=== PATIENT | male | born 1955 | race Caucasian/White ===

== ENCOUNTER 2018-01-19 17:06 | Emergency (ER) | payer MEDICARE ==
[~2018-01-19] VITALS: Ht 185.4 cm; Wt 74.8 kg
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
[2018-01-19] MEDS ORDERED: LIDOCAINE HCL/PF 1% 30 ML VIAL TP ONE (18:00)
[2018-01-19 18:09] LABS: BASOPHILS % (AUTO) 0.5 % (0.0-2.0); HEMATOCRIT 27 % (39-51); HEMOGLOBIN 9.4 g/dL (13.5-17.5); LYMPHOCYTES # (AUTO) 0.5 /CMM (0.8-4.8); LYMPHOCYTES % (AUTO) 7.7 % (20.0-44.0); MEAN CORPUSCULAR HEMOGLOBIN 33 PG (26.0-33.0); MEAN CORPUSCULAR HGB CONC 34 g/dl (31.0-36.0); MEAN CORPUSCULAR VOLUME 96 fL (80-96); MONOCYTES # (AUTO) 0.6 /CMM (0.1-1.30); MONOCYTES % (AUTO) 7.8 % (2.0-12.0); NEUTROPHILS # (AUTO) 5.9 /CMM (1.8-8.9); PLATELET COUNT (AUTO) 182 /CMM (150-450); RDW COEFFICIENT OF VARIATION 13.2 (11.5-15.0); RED BLOOD CELL COUNT(AUTO) 2.86 MIL/uL (4.5-6.0); WHITE BLOOD COUNT (AUTO) 7.1 K/uL (4.3-11.0)
[2018-01-19 18:20] LABS: CALCIUM, SERUM 8.4 mg/dL (8.5-10.1); CREATININE 1.9 mg/dL (0.6-1.3); POTASSIUM 3.1 mmol/L (3.5-5.1)
[2018-01-19 18:40] LABS: INR 0.94 (0.85-1.15)
[2018-01-19] MEDS ORDERED: POTASSIUM CHLORIDE 20 MEQ TAB.PRT.SR PO ONE ×2 (20:00)
--- NOTE | 2018-01-19 21:00 | NUR ---
IV removed. Catheter intact and site benign. Pressure and 4x4 applied to site. No bleeding noted.
[2018-01-19 21:11] VITALS: BP 128/75
--- NOTE | 2018-01-19 21:13 | NUR ---
Patient discharged to home in stable condition. Written and verbal after care instructions given. Patient verbalizes understanding of instruction.
== END 2018-01-19 21:24 | disposition home or self-care (01) ==
LOC: ER 17:07
DX: S81.811A Laceration without foreign body, right lower leg, initial encounter (principal); K59.00 Constipation, unspecified; I10 Essential (primary) hypertension; Z85.038 Personal history of other malignant neoplasm of large intestine; V49.88XA Car occupant (driver) (passenger) injured in other specified transport accidents, initial encounter; Y93.89 Activity, other specified; Y92.488 Other paved roadways as the place of occurrence of the external cause; Y99.8 Other external cause status
CPT/HCPCS: 12002; 36415; 70450; 71250; 73590; 74176; 80048; 85025; 85730; 99285; A4606; A6403; G0480; J3490; Z7610

== ENCOUNTER 2018-02-13 09:13 | Outpatient (CLI) | payer MEDICARE, OTHER ==
[~2018-02-13 09:13] MED LIST: AMLO10TA6 PO; ARIP5TAB10 PO; BUPR300T54 PO; LACT10SO6 PO; METO-356 PO; SULF1TAB48 PO; THIA100T13 PO
== END 2018-02-13 23:59 | disposition home or self-care (01) ==
LOC: WOU 09:13
PROVIDERS: ATTEND Podiatrist Foot & Ankle Surgery
DX: S81.811D Laceration without foreign body, right lower leg, subsequent encounter (principal); X58.XXXD Exposure to other specified factors, subsequent encounter; F17.200 Nicotine dependence, unspecified, uncomplicated; F10.20 Alcohol dependence, uncomplicated; F15.10 Other stimulant abuse, uncomplicated; Y90.9 Presence of alcohol in blood, level not specified; Z48.817 Encounter for surgical aftercare following surgery on the skin and subcutaneous tissue; R60.0 Localized edema
CPT/HCPCS: 17250; A6402; Z7610

== ENCOUNTER 2018-02-16 09:25 | Outpatient (CLI) | payer MEDICARE, OTHER | END 2018-02-16 23:59 | disposition home health service (06) | LOC: WOU 09:25 | PROVIDERS: ATTEND Podiatrist Foot & Ankle Surgery | DX: Z48.817 Encounter for surgical aftercare following surgery on the skin and subcutaneous tissue (principal); R60.0 Localized edema; I87.2 Venous insufficiency (chronic) (peripheral) | CPT/HCPCS: A6402; G0463; Z7610 ==

== ENCOUNTER 2018-12-30 15:15 | Emergency (ER) | payer MEDICARE, OTHER ==
[~2018-12-30] VITALS: Ht 185.4 cm; Wt 80.7 kg
[~2018-12-30 15:15] MED LIST changes: -AMLO10TA6 PO; +AMLO10TA7 PO
[2018-12-30 15:30] VITALS: BP 127/88
--- NOTE | 2018-12-30 15:44 | NUR ---
Patient eloped from facility. WALKS WITH STEADY GAIT, ID BAND REMOVED, NO IV. ER MD notified.
== END 2018-12-30 15:48 | disposition home or self-care (01) ==
LOC: ER 15:18
DX: F10.129 Alcohol abuse with intoxication, unspecified (principal); I10 Essential (primary) hypertension; Z60.2 Problems related to living alone; Z79.899 Other long term (current) drug therapy; Z85.038 Personal history of other malignant neoplasm of large intestine; Y90.9 Presence of alcohol in blood, level not specified

== ENCOUNTER 2020-02-29 20:56 | Inpatient (IN) | payer MEDICARE, OTHER ==
[~2020-02-29] VITALS: Ht 185.4 cm; Wt 81.6 kg
[~2020-02-29 20:56] MED LIST changes: +BUPR-319 PO; -BUPR300T54 PO; -METO-356 PO; +METO25TA4 PO
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
[2020-02-29] MEDS ORDERED: LORAZEPAM INJ 2 MG/ML VIAL IM ONE ×2 (21:30→22:00)
[2020-02-29] MEDS ORDERED: LORAZEPAM INJ 2 MG/ML VIAL ONE ×2 (21:31→21:47)
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
--- NOTE | 2020-02-29 21:51 | NUR ---
PT MEDICATED ORDERED.
[2020-02-29 22:38] LABS: HEMATOCRIT 23 % (39-51); HEMOGLOBIN 7.9 g/dL (13.5-17.5); MEAN CORPUSCULAR HGB CONC 34 g/dl (31.0-36.0); MEAN CORPUSCULAR VOLUME 91 fL (80-96); PLATELET COUNT (AUTO) 236 /CMM (150-450); RED BLOOD CELL COUNT(AUTO) 2.55 MIL/uL (4.5-6.0); WHITE BLOOD COUNT (AUTO) 4.9 K/uL (4.3-11.0)
[2020-02-29 22:58] LABS: ALBUMIN 2.6 g/dL (3.4-5.0); BILIRUBIN,DIRECT 0.1 mg/dL (0.0-0.2); BILIRUBIN,TOTAL 0.2 mg/dL (0.2-1.0); CALCIUM, SERUM 8.7 mg/dL (8.5-10.1); CREATININE 1.3 mg/dL (0.6-1.3); POTASSIUM 3.4 mmol/L (3.5-5.1); SALICYLATE 3.8 mg/dL (2.8-20.0); TOTAL PROTEIN, SERUM 11.4 g/dL (6.4-8.2)
[2020-02-29 23:22] LABS: NEUTROPHILS % (MANUAL) 60 (42-76)
[2020-02-29 23:23] LABS: BAND % (MANUAL) 3 % (0.0-5.0); EOSINOPHILS % (MANUAL) 6 % (0-4); LYMPHOCYTES % (MANUAL) 22 % (16-48); MONOCYTES % (MANUAL) 9 % (0-11.0)
[2020-03-01] VITALS (83 sets, daily range): BP systolic 44–143; BP diastolic 29–80
[2020-03-01] MEDS ORDERED: LIDOCAINE 2% JEL UROJET 10 ML MM ONE (01:19)
--- NOTE | 2020-03-01 01:30 | NUR ---
URINE COLLECTED AND SENT TO LAB
[2020-03-01 01:54] LABS: APPEARANCE,URINE CLEAR (CLEAR); BILIRUBIN,URINE NEGATIVE (NEGATIVE); BLOOD, URINE TRACE Ery/uL (NEGATIVE); COLOR,URINE YELLOW (YELLOW); KETONES,URINE NEGATIVE (NEGATIVE); LEUKOCYTE ESTERASE ,URINE NEGATIVE (NEGATIVE); NITRITE, URINE NEGATIVE (NEGATIVE); PH,URINE 5.5 (5.0-8.0); PROTEIN,URINE NEGATIVE (NEGATIVE); UGLUCOSE NEGATIVE (NEGATIVE); UROBILINOGEN,URINE 0.2 EU/dL (0.2)
[2020-03-01 01:55] LABS: BACTERIA,URINE None seen /HPF (None Seen); SQUAMOUS EPITHELIAL CELL,UR Few /HPF (None Seen); WBC,URINE 0-2 /HPF (0-3)
--- NOTE | 2020-03-01 03:00 | NUR ---
PT AAOX4, VSS, RESPIRATIONS EVEN AND UNLABORED ON RA W/ NAD NOTED. PT CONNECTED TO THE MONITOR AND POX
--- NOTE | 2020-03-01 04:35 | NUR ---
NOTED O2 SATURATIONS WENT DOWN TO 82%. MADE AWARE.
[2020-03-01] MEDS ORDERED: NALOXONE PREFILLED SYRINGE 2 MG/2 ML SYRINGE ONE (04:41)
[2020-03-01] MEDS ORDERED: PROPOFOL 100 ML ONE (04:50)
--- NOTE | 2020-03-01 05:00 | NUR ---
COVID SWAB SENT TO LAB
--- NOTE | 2020-03-01 05:09 | NUR ---
RT called to er bed 5 for intubation. pt intubated with ett size 7.5 at 26@lip. vent settings: AC 16 450 100% +5. vent plugged in to red outlet. ambu bag at hob. hob at 40 degrees. lung sounds course throughout. abg in [address] will continue to monitor.
--- NOTE | 2020-03-01 05:16 | NUR ---
PT TAKEN TO RADIOLOGY FOR CT
--- NOTE | 2020-03-01 05:21 | NUR ---
PT BACK FROM RADIOLOGY
[2020-03-01] MEDS ORDERED: NOREPINEPHRINE 8 MG in IV NS 0.9% 250 ML IV PRN (05:30)
[2020-03-01] MEDS ORDERED: IV NS 0.9% 1,000 ML IV PRN (05:30)
[2020-03-01] MEDS ORDERED: PROPOFOL 100 ML IV PRN ×2 (05:30)
--- NOTE | 2020-03-01 05:50 | NUR ---
RT AT BEDSIDE FOR ABG
[2020-03-01] MEDS ORDERED: SUCCINYLCHOLINE CHLORIDE 20 MG/ML VIAL IV ONE (06:00)
[2020-03-01] MEDS ORDERED: LORAZEPAM INJ 2 MG/ML VIAL IV PRN ×2 (06:00→09:30)
[2020-03-01] MEDS ORDERED: ETOMIDATE 2 MG/ML VIAL IV ONE (06:00)
[2020-03-01 06:09] LABS: ABG BASE EXCESS -16.4 mmol/L; ABG OXYGEN SATURATION 98.7 % (92.0-98.5); ABG PH 6.944 (7.350-7.450); ABG PO2 226.8 mmHg (75.0-100.0); AaDO2 412.2 mmHg; COHb 1.1 % (0.5-1.5); MetHb 0.5 % (0.0-1.5); O2Hb 97.1 % (94.0-97.0); SITE, ABG Left Radial; VENT MODE, BG AC 16 450 100% +5
[2020-03-01] MEDS ORDERED: ENOXAPARIN SODIUM 40 MG/0.4 ML DISP.SYRIN SQ SCH (07:00)
--- NOTE | 2020-03-01 07:07 | NUR ---
LAB CALLED REGARDING NEGATIVE COVID RESULT.
--- NOTE | 2020-03-01 07:31 | NUR ---
PT TRANSFERRED TO ROOM VIA ACLS PROTOCOL
[2020-03-01] MEDS ORDERED: Thiamine 100 MG in IV D5W 50 ML IV SCH (08:00)
[2020-03-01] MEDS ORDERED: IV LR 1000 ML 1,000 ML IV ONE (08:30)
[2020-03-01] MEDS: PANTOPRAZOLE 40 MG VIAL IV SCH (08:44)
[2020-03-01] MEDS: ASPIRIN 81 MG TAB.CHEW PO SCH ×2 (08:46→09:00)
[2020-03-01] MEDS ORDERED: IV D5/0.45 NACL 1,000 ML IV PRN (09:00)
[2020-03-01 09:18] LABS: ABG BASE EXCESS -13.5 mmol/L; ABG OXYGEN SATURATION 88.4 % (92.0-98.5); ABG PCO2 40.1 mmHg (35.0-45.0); ABG PH 7.167 (7.350-7.450); ABG PO2 62.9 mmHg (75.0-100.0); AaDO2 465.4 mmHg; COHb 0.7 % (0.5-1.5); MetHb 0.3 % (0.0-1.5); O2Hb 87.5 % (94.0-97.0); SITE, ABG Right Radial
[2020-03-01 09:39] LABS: HEMATOCRIT 26 % (39-51); HEMOGLOBIN 8.4 g/dL (13.5-17.5); LYMPHOCYTES # (AUTO) 0.3 /CMM (0.8-4.8); LYMPHOCYTES % (AUTO) 3.7 % (20.0-44.0); MEAN CORPUSCULAR HGB CONC 32 g/dl (31.0-36.0); MEAN CORPUSCULAR VOLUME 94 fL (80-96); MONOCYTES # (AUTO) 0.2 /CMM (0.1-1.30); MONOCYTES % (AUTO) 3.2 % (2.0-12.0); NEUTROPHILS # (AUTO) 6.9 /CMM (1.8-8.9); NEUTROPHILS % (AUTO) 93.1 % (43.0-81.0); PLATELET COUNT (AUTO) 194 /CMM (150-450); RED BLOOD CELL COUNT(AUTO) 2.75 MIL/uL (4.5-6.0); WHITE BLOOD COUNT (AUTO) 7.5 K/uL (4.3-11.0)
[2020-03-01 09:58] LABS: ALBUMIN 2.2 g/dL (3.4-5.0); BILIRUBIN,TOTAL 0.4 mg/dL (0.2-1.0); CALCIUM, SERUM 8.6 mg/dL (8.5-10.1); CREATININE 1.8 mg/dL (0.6-1.3); MAGNESIUM 2.6 mg/dL (1.8-2.4); PHOSPHORUS 7.6 mg/dL (2.5-4.9); POTASSIUM 5.8 mmol/L (3.5-5.1); TOTAL PROTEIN, SERUM 10.9 g/dL (6.4-8.2)
[2020-03-01 10:13] LABS: THYROID STIMULATING HORMONE 1.505 uIU/mL (0.358-3.74)
[2020-03-01] MEDS: PRECEDEX 400 MCG/100 ML BOTTLE 100 ML IV PRN ×3 (10:58→21:23)
[2020-03-01] MEDS ORDERED: ETOMIDATE 2 MG/ML VIAL ONE (12:00)
[2020-03-01] MEDS ORDERED: SUCCINYLCHOLINE CHLORIDE 20 MG/ML VIAL ONE (12:00)
[2020-03-01 13:05] LABS: ABG BASE EXCESS -6.7 mmol/L; ABG OXYGEN SATURATION 94.8 % (92.0-98.5); ABG PCO2 42.5 mmHg (35.0-45.0); ABG PH 7.282 (7.350-7.450); ABG PO2 78.8 mmHg (75.0-100.0); AaDO2 591.7 mmHg; COHb 0.3 % (0.5-1.5); MetHb 0.3 % (0.0-1.5); O2Hb 94.2 % (94.0-97.0); SITE, ABG Right Radial
[2020-03-01] MEDS: BLOOD SUGAR DIAGNOSTIC 1 EACH STRIP IN SCH ×2 (13:27→19:02)
[2020-03-01] MEDS: PIPERACILLIN /TAZOBACTAM 3.375 G in IV D5W 50 ML IV SCH ×2 (13:47→19:02)
[2020-03-01] MEDS ORDERED: SODIUM POLYSTYRENE SULFONATE 15 G/60 ML BOTTLE PO ONE (15:00)
[2020-03-01] MEDS: Sodium Bicarbonate 100 MEQ in IV D5/0.45 NACL 1,000 ML IV PRN (15:15)
[2020-03-01] MEDS: VANCOMYCIN 1.25 GM in IV D5W 250 ML IV SCH (15:15)
[2020-03-01] MEDS: LORAZEPAM INJ 2 MG/ML VIAL IV PRN (16:23)
[2020-03-01] MEDS: LACTULOSE 10 G/15 ML UDC (PYXIS) PO PRN (16:23)
[2020-03-01] MEDS ORDERED: NOREPINEPHRINE 32 MG in IV NS 0.9% 250 ML IV PRN (16:30)
[2020-03-01] MEDS: NOREPINEPHRINE 32 MG in IV NS 0.9% 218 ML IV PRN (17:19)
--- NOTE | 2020-03-01 17:48 | NUR ---
RT PATIENT REMAINS ORALLY INTUBATED ON [facility] VENT WITH ORDERED SETTINGS CHRISTIN WELL. ALARMS CHECKED + AUDIBLE. AMBU BAG AT [facility]. PATIENT SEDATED AND IN NO RESP DISTRESS. Addendum: 03/01/20 at 1749 by CATARINA HOLT RT Amended: Links added.
--- NOTE | 2020-03-01 19:28 | NUR ---
SPUTUM SAMPLE COLLECTED. RN NOTIFIED.
[2020-03-01] MEDS: AZITHROMYCIN 500 MG in IV D5W 250 ML IV SCH (20:42)
[2020-03-02] VITALS (87 sets, daily range): BP systolic 74–150; BP diastolic 49–94
[2020-03-02] MEDS: PIPERACILLIN /TAZOBACTAM 3.375 G in IV D5W 50 ML IV SCH ×2 (00:04→05:41)
[2020-03-02] MEDS: PANTOPRAZOLE 40 MG VIAL IV SCH ×3 (00:04→21:13)
[2020-03-02] MEDS: LACTULOSE 10 G/15 ML UDC (PYXIS) PO PRN (00:04)
[2020-03-02] MEDS: BLOOD SUGAR DIAGNOSTIC 1 EACH STRIP IN SCH ×4 (00:04→18:06)
[2020-03-02] MEDS: LORAZEPAM INJ 2 MG/ML VIAL IV PRN (01:49)
[2020-03-02] MEDS ORDERED: SODIUM BICARBONATE SYR 50 MEQ/50 ML DISP.SYRIN ONE ×2 (02:53→23:39)
[2020-03-02] MEDS: PRECEDEX 400 MCG/100 ML BOTTLE 100 ML IV PRN ×4 (02:56→16:18)
[2020-03-02] MEDS: Sodium Bicarbonate 100 MEQ in IV D5/0.45 NACL 1,000 ML IV PRN ×2 (03:06→12:08)
[2020-03-02] MEDS ORDERED: NOREPINEPHRINE 4 MG/4 ML AMPUL IV ONE (04:22)
[2020-03-02] MEDS: NOREPINEPHRINE 32 MG in IV NS 0.9% 218 ML IV PRN ×2 (04:33→07:52)
[2020-03-02 05:06] LABS: HEMATOCRIT 24 % (39-51); HEMOGLOBIN 7.9 g/dL (13.5-17.5); LYMPHOCYTES # (AUTO) 0.3 /CMM (0.8-4.8); LYMPHOCYTES % (AUTO) 2.3 % (20.0-44.0); MEAN CORPUSCULAR HGB CONC 33 g/dl (31.0-36.0); MEAN CORPUSCULAR VOLUME 91 fL (80-96); MONOCYTES % (AUTO) 7.5 % (2.0-12.0); NEUTROPHILS # (AUTO) 12.4 /CMM (1.8-8.9); NEUTROPHILS % (AUTO) 90.2 % (43.0-81.0); PLATELET COUNT (AUTO) 182 /CMM (150-450); RED BLOOD CELL COUNT(AUTO) 2.65 MIL/uL (4.5-6.0); WHITE BLOOD COUNT (AUTO) 13.7 K/uL (4.3-11.0)
[2020-03-02 05:27] LABS: APPEARANCE,URINE SL CLOUDY (CLEAR); BILIRUBIN,URINE NEGATIVE (NEGATIVE); BLOOD, URINE MODERATE Ery/uL (NEGATIVE); COLOR,URINE YELLOW (YELLOW); KETONES,URINE NEGATIVE (NEGATIVE); LEUKOCYTE ESTERASE ,URINE NEGATIVE (NEGATIVE); NITRITE, URINE POSITIVE (NEGATIVE); PH,URINE 5.5 (5.0-8.0); PROTEIN,URINE 100 mg/dl (NEGATIVE); UGLUCOSE NEGATIVE (NEGATIVE); UROBILINOGEN,URINE 0.2 EU/dL (0.2)
[2020-03-02 05:30] LABS: CREATININE 2.8 mg/dL (0.6-1.3); MAGNESIUM 1.8 mg/dL (1.8-2.4); PHOSPHORUS 3.5 mg/dL (2.5-4.9); POTASSIUM 3.8 mmol/L (3.5-5.1); TOTAL PROTEIN, SERUM 10.1 g/dL (6.4-8.2)
[2020-03-02 06:02] LABS: BACTERIA,URINE Moderate /HPF (None Seen); RBC,URINE 21-50 /HPF (0-2); SQUAMOUS EPITHELIAL CELL,UR Few /HPF (None Seen); WBC,URINE 0-2 /HPF (0-3)
[2020-03-02 06:42] LABS: CREATININE, URINE 73.8 MG/DL (30.0-125.0); URINE TOTAL PROTEIN 167.5 mg/dL (0-11.9)
[2020-03-02] MEDS: VANCOMYCIN 1.25 GM in IV D5W 250 ML IV SCH (06:58)
--- NOTE | 2020-03-02 07:36 | NUR ---
TUNNEL DRIER OPERATOR note [facility] via ETT, FiO2 45%, PEEP 10, SPO2 >94% , RR 21 (AC 20). Patient sedated, gets very agitated at times. ~100mL brown colored drainage from OGT (LIS) yesterday -> ~200mL light pink last night. Secretions via ETT ~50mL thick yellow/watson. SR HR 80-90. No BM. Li in place drained 1200 mL over night. Temp probe in rectum. No fevers over night. Wound pictures taken. Restraints in place. NPO. VERONIKA PICC infusing levo, precedex, IVF. L AC 18G. Sister Marifer info on facesheet. Per Marifer, patient has leukemia
--- NOTE | 2020-03-02 07:45 | NUR ---
ICU/RN: INITIAL NOTES,AM RECEIVED PT INTUBATED AND SEDATED. ETT 7.5, 25CM AT THE LIP. ON VENT SETTINGS ORDERED BY MD, AGITATION AND RESTLESSNESS NOTED. SINUS ON TELE. OGT TO LIS, WILL CONTINUE TO MONITOR. OLIVERA CATH IN PLACE, OUTPUT NOTED. PT NPO AT THIS TIME. RIGHT UPPER ARM PICC LINE PATENT AND INTACT, LEVO INFUSING FOR BP SUPPORT. WILL TITRATE PER PROTOCOL. AFEBRILE AT THIS TIME. ALL NEEDS WILL BE ATTENDED TO, SAFETY MEASURES TAKEN, BED IN LOW POSITION, SIDE RAILS UP, CALL LIGHT WITHIN REACH. WILL CONTINUE CARE. BILATERAL SOFT WRIST RESTRAINTS IN PLACE, ASSESSES PER PROTOCOL.
--- NOTE | 2020-03-02 08:23 | NUR ---
WOUND CARE CONSULT: PT PRESENTS WITH SACRAL SCARRING AND MULTIPLE DRY SCABS, SCARS AND DISCOLORED AREAS TO LOWER LEGS AND FEET, PRESENT ON ADMISSION. RECOMMENDATIONS MADE FOR SKIN PROTECTION. DISCUSSED WITH NURSING STAFF. PT IS ON SHALOM ISOFLEX LOW AIRLOSS BED. WILL SEE PRN. BECK IN AGREEMENT WITH PLAN OF CARE. Addendum: 03/02/20 at 0825 by DEIDRA ELLISON WNDNU Amended: Links added.
[2020-03-02] MEDS ORDERED: Z GUARD REMEDY 2 OZ OINT TP PRN (08:30)
--- NOTE | 2020-03-02 08:30 | NUR ---
ICU/RN: PT SEEN AND ASSESSED BY DIESEL SERVICE TECHNICIAN. NEW ORDERS WILL BE FOLLOWED.
[2020-03-02] MEDS: ASPIRIN 81 MG TAB.CHEW PO SCH (08:49)
[2020-03-02] MEDS: Z GUARD REMEDY 2 OZ OINT TP SCH (08:49)
--- NOTE | 2020-03-02 09:00 | NUR ---
ICU/RN: PER NO SEDATION VACATION FOR PT. PT AGITATED, DIFFICULT TO SEDATED. WILL CONTINUE TO MONITOR.
[2020-03-02 09:41] LABS: ABG BASE EXCESS -1.1 mmol/L; ABG OXYGEN SATURATION 96.3 % (92.0-98.5); ABG PCO2 36.2 mmHg (35.0-45.0); ABG PH 7.423 (7.350-7.450); ABG PO2 79.7 mmHg (75.0-100.0); COHb 0.5 % (0.5-1.5); MetHb 0.1 % (0.0-1.5); O2Hb 95.7 % (94.0-97.0); PEEP,BG 5 cm H2O; SITE, ABG Left Radial; VT, ABG 600 mL
[2020-03-02] MEDS: HYDROCORTISONE SOD SUCCINATE 100 MG/2 ML VIAL IV SCH ×3 (11:28→21:13)
[2020-03-02 11:35] LABS: EOSINOPHIL,URINE None Seen
[2020-03-02] MEDS: PIPERACILLIN /TAZOBACTAM 3.375 G in IV D5W 100 ML IV SCH ×2 (12:01→21:13)
--- NOTE | 2020-03-02 17:32 | NUR ---
RT 0807: RECEIVED PT ORALLY INTUBATED W/ 7.5 ETT MARKED @ 26 CM LIP, WITH NOTED VENT SETTINGS. PAN SHAKER DONE AND TUBE IS SECURE. VENT ALARMS CHECKED AND AUDIBLE. VENT PLUGGED IN RED OUTLET. AMBU BAG NOTED HOB. LINA B/S, SX W/ MOD THK YELLOW SECRETIONS. 0828: REPORT GIVEN TO DR DOTSON WITH CURRENT SETTINGS. PER MD, PLACED PT ON PEEP +5. ORDER WAS PLACED AND CHANGES WERE MADE. 0945: ABG DONE AND RESULTS RELAYED TO RN AND DR DOTSON, PER DR DOTSON LEAVE PT IS, NO CHANGES. 17:32: PT TOLERATING SETTINGS WELL T/O SHIFT. NO SOB OR RESP DISTRESS NOTED, WILL ENDORSE TO NOC SHIFT FOR MOI.
[2020-03-02] MEDS: AZITHROMYCIN 500 MG in IV D5W 250 ML IV SCH (18:11)
--- NOTE | 2020-03-02 18:35 | NUR ---
ICU/RN ENDING NOTES,AM REPORT WILL BE ENDORSED TO NIGHT NURSE FOR MOI. PT INTUBATED AND SEDATED. ON PRECEDEX FOR SEDATION. ON VENT SETTINGS ORDERED, NO DISTRESS NOTED, TOLERATING WELL. SINUS ON TELE. ORDERS FOR WEANING IN AM. PT NPO, OG TUBE TO LIS, MINIMAL OUTPUT. RIGHT UPPER ARM PICC LINE PATENT AND INTACT, NO S/S OF INFECTION OR INFILTRATION NOTED. LEVO OFF, WILL MONITOR BP. ALL NEEDS ATTENDED TO, SAFETY MEASURES TAKEN, BED IN LOW POSITION, SIDE RAILS UP, CALL LIGHT WITHIN REACH. WILL CONTINUE CARE.
[2020-03-02] MEDS ORDERED: NOREPINEPHRINE 8 MG in IV NS 0.9% 242 ML IV PRN (19:00)
--- NOTE | 2020-03-02 19:30 | NUR ---
RN NOTES RECEIVED PT SEDATED ON BED WITH PRECEDEX. PATIENT ON ETT 7.5 AND 26 CM AT LIP LINE WITH VETN SETTING AC 20 TV 600 FIO2 45% PEEP 5 TOELRATED WELL SATURATION 98%. NO ACUTE RESPIRATIRY DISTRESS. AFEBRILE. sr ON TELE MONITOR. OGT ON LIS. WITH MINIMAL OUTPUT. IV SITE ON VERONIKA PICC LINE ARE ALL INTACT AND PATENT. IV RUNNING WITH PRECEDEX 1.2 AND BICARB @ 100 CC/HR. TURN AND REPOSITION FOR SKIN MANAGEMENT. KEPT PT CLEAN AND DRY. CALL LIGHT PLACED WITHIN EASY REACH,, WILL CONTINUE TO MONITOR.
[2020-03-02] MEDS ORDERED: IV NS 0.9% 250 ML IV PRN (21:30)
[2020-03-03] VITALS (39 sets, daily range): BP systolic 84–155; BP diastolic 79–106
[2020-03-03] MEDS: BLOOD SUGAR DIAGNOSTIC 1 EACH STRIP IN SCH ×4 (00:07→18:18)
[2020-03-03] MEDS: PRECEDEX 400 MCG/100 ML BOTTLE 100 ML IV PRN ×2 (00:40→05:19)
[2020-03-03 03:09] LABS: *BASOS 0 % (Not Estab.); *EOS 0 % (Not Estab.); *HCT 23.6 % (37.5-51.0); *HGB 7.6 g/dL (13.0-17.7); *IMMATURE GRANULOCYTES 0 % (Not Estab.); *LYMPHOCYTES 5 % (Not Estab.); *LYMPHS, ABSOLUTE 0.2 x10E3/uL (0.7-3.1); *MCH 29.5 pg (26.6-33.0); *MCHC 32.2 g/dL (31.5-35.7); *MCV 92 fL (79-97); *MONOCYTES 11 % (Not Estab.); *MONOS, ABSOLUTE 0.4 x10E3/uL (0.1-0.9); *NEUTROPHILS 84 % (Not Estab.); *NEUTROPHILS, ABSOLUTE 2.9 x10E3/uL (1.4-7.0); *PLT 145 x10E3/uL (150-450); *RBC 2.58 x10E6/uL (4.14-5.80)
[2020-03-03 04:56] LABS: HEMATOCRIT 23 % (39-51); HEMOGLOBIN 7.8 g/dL (13.5-17.5); LYMPHOCYTES # (AUTO) 0.2 /CMM (0.8-4.8); LYMPHOCYTES % (AUTO) 0.9 % (20.0-44.0); MEAN CORPUSCULAR HGB CONC 34 g/dl (31.0-36.0); MEAN CORPUSCULAR VOLUME 89 fL (80-96); MONOCYTES # (AUTO) 0.9 /CMM (0.1-1.30); MONOCYTES % (AUTO) 3.7 % (2.0-12.0); NEUTROPHILS # (AUTO) 22.1 /CMM (1.8-8.9); NEUTROPHILS % (AUTO) 95.4 % (43.0-81.0); PLATELET COUNT (AUTO) 153 /CMM (150-450); RED BLOOD CELL COUNT(AUTO) 2.61 MIL/uL (4.5-6.0); WHITE BLOOD COUNT (AUTO) 23.1 K/uL (4.3-11.0)
[2020-03-03 05:18] LABS: ALBUMIN 1.9 g/dL (3.4-5.0); BILIRUBIN,DIRECT 0.3 mg/dL (0.0-0.2); BILIRUBIN,TOTAL 1.6 mg/dL (0.2-1.0); CALCIUM, SERUM 8.3 mg/dL (8.5-10.1); CREATININE 1.9 mg/dL (0.6-1.3)
[2020-03-03] MEDS: PIPERACILLIN /TAZOBACTAM 3.375 G in IV D5W 100 ML IV SCH ×3 (05:20→20:45)
[2020-03-03] MEDS: HYDROCORTISONE SOD SUCCINATE 100 MG/2 ML VIAL IV SCH ×3 (05:20→20:45)
--- NOTE | 2020-03-03 07:00 | NUR ---
RN NOTES PATIENT REMAINED INTUBATED WITH SAME VENT SETTING ON FIO2 45%. WITH LOW GRADE FEVER. COOLING MEASURES PROVIDED. INCONTINENT CARE RENDERED. IV SITE VERONIKA PICC LINE WITH PRECEDEX RUNNING TOLERATED WELL. PATIENT REMAINED SEDATED. OLIVERA CATH KEPT IN PLACED WITH GOOD URINE OUTPUT. KEPT PT CLEAN AND DRY. PT WILL HAVE WEANING TRIAL TODAY. WILL ENDORSED CONTINUITY OF CARE.
--- NOTE | 2020-03-03 07:30 | NUR ---
RN OPENING NOTE: RECEIVED PATIENT IN BED THIS MORNING. PATIENT IS INTUBATED AND TOLERATING SETTINGS WELL. NO SIGNS OF ACUTE DISTRESS NOTED AT THIS TIME. SR IN THE 70S NOTED ON THE MONITOR. OGT LIS. OLIVERA DRAINING URINE. WOUND CARE PER ORDERS. VERONIKA PICC/ #18 LAC C/D/I, FLUSHING WELL, NO SIGNS OF COMPLICATIONS NOTED. SAFETY MEASURES IMPLEMENTED, BED IN LOWEST POSITION, LOCKED, SIDE RAILS UP, CALL LIGHT WITHIN REACH. WILL CONTINUE TO MONITOR PATIENT FOR CHANGES.
--- NOTE | 2020-03-03 08:06 | NUR ---
PER MD NOTES, TRANSFUSE FOR HBG <8, CLARIFIED WITH MD D/T PATIENT'S CURRENT HGB LEVELS. MD WILL GET BACK TO ME. RECEIVED OVER THE PHONE CONSENT FOR TRANSFUSION FROM PATIENT'S SISTER.
[2020-03-03] MEDS: ASPIRIN 81 MG TAB.CHEW PO SCH ×2 (08:13→08:18)
[2020-03-03] MEDS: PANTOPRAZOLE 40 MG VIAL IV SCH ×2 (08:13→20:45)
[2020-03-03] MEDS: Z GUARD REMEDY 2 OZ OINT TP SCH (08:14)
--- NOTE | 2020-03-03 08:18 | NUR ---
PATIENT HAS TEMP OF 100.5, D/T PATIENT HAVING LIVER ISSUES, DO NOT GIVE ANYTHING FOR TEMP PER DR DOTSON
[2020-03-03 12:00] LABS: ABG BASE EXCESS 4.2 mmol/L; ABG OXYGEN SATURATION 96.3 % (92.0-98.5); ABG PCO2 37.4 mmHg (35.0-45.0); ABG PH 7.488 (7.350-7.450); ABG PO2 83.8 mmHg (75.0-100.0); AaDO2 194.5 mmHg; COHb 0.3 % (0.5-1.5); SITE, ABG Right Radial
[2020-03-03] MEDS: POTASSIUM CL. PREMIX PERIPHER. 50 ML IV SCH ×5 (12:47→18:19)
[2020-03-03 13:11] LABS: *% CD 4 POS. LYMPH 34.4 % (30.8-58.5); *ABSOLUTE CD 4 HELPER 69 /uL (359-1519); *ABSOLUTE CD 8 SUPPRESSOR 52 /uL (109-897); *CD4/CD8 RATIO 1.32 (0.92-3.72)
--- NOTE | 2020-03-03 13:30 | NUR ---
RT PATIENT WAS EXTUBATED AND PLACED ON SUPPLEMENTAL O2 PER DR ARGUETA ORDER. PATIENT IN NO DISTRESS NO SOB. ALONZO BLAKELY AT BEDSIDE.
[2020-03-03] MEDS ORDERED: VANCOMYCIN 1 GM in IV D5W 250 ML IV SCH (14:00)
[2020-03-03] MEDS: AZITHROMYCIN 500 MG in IV D5W 250 ML IV SCH (18:11)
--- NOTE | 2020-03-03 18:48 | NUR ---
NO INSULIN COVERAGE TODAY D/T PATIENT BEING NPO
--- NOTE | 2020-03-03 18:48 | NUR ---
RN CLOSING NOTE: PATIENT REMAINS IN BED. NO SIGNS OF ACUTE DISTRESS NOTED AT THIS TIME. SR IN THE 60S ON BEDSIDE MONITOR. SAFETY MEASURES IMPLEMENTED, BED IN LOWEST POSITION, LOCKED, SIDE RAILS UP, CALL LIGHT WITHIN REACH. WILL ENDORSE TO ONCOMING SHIFT RN FOR CONTINUITY OF CARE.
--- NOTE | 2020-03-03 20:30 | NUR ---
RN NOTES NOTED PATIENT PICC LINE WAS REMOVED. SLIGHT BLEEDING NOTED, TIP ARE INTACT. NO SOB. PATIENT IS SLIGHT RESTLESS. REEDUCATE AND INFORM PATIENT, RE ORIENTED WHERE HE IS. PATIENT STARTED TO GET SLIGHT AGITATION AND WANTED TO GO HOME. INSTRUCTED PATIENT HIS CONDITION AND THE TIME AT THIS TIME. PATIENT SLOWLY CALMING DOWN. AND ASKED FOR DRINKS. INFORMED STREET LIGHT REPAIRER SPOKE TO MARGAUX BUTTS WITH NEW ORDER OK TO GIVE DRINKS AFTER INITIALLY ASSESS BY NURSE AND FOLLOW UP WITH MATTY BRAVO TOMORROW.
[2020-03-03] MEDS: CLINDAMYCIN 600 MG in IV D5W 50 ML IV SCH (20:45)
[2020-03-03] MEDS ORDERED: CLINDAMYCIN 900 MG in IV D5W 50 ML IV SCH (21:00)
--- NOTE | 2020-03-03 22:00 | NUR ---
RN NOTES IV LINE ON CARLOS AND LAC G 20 INSERTED WITH GOOD BLOOD RETURN AND FLUSHED WELL. SECURED. LFA REMOVED CLOGGED. PT IS RESTLESS AND TRYING TO GET UP ON BED. PATIENT PLACE BACK TO RESTRAINT , CIRCULATION CHECKED. INFORMED AND REEDUCATE THE PATIENT .
[2020-03-04] VITALS (18 sets, daily range): BP systolic 116–154; BP diastolic 65–90
[2020-03-04] MEDS: BLOOD SUGAR DIAGNOSTIC 1 EACH STRIP IN SCH ×4 (00:26→17:08)
[2020-03-04 04:45] LABS: BASOPHILS # (AUTO) 0.2 /CMM (0.0-0.2); BASOPHILS % (AUTO) 0.6 % (0.0-2.0); HEMATOCRIT 26 % (39-51); HEMOGLOBIN 8.6 g/dL (13.5-17.5); LYMPHOCYTES # (AUTO) 0.3 /CMM (0.8-4.8); LYMPHOCYTES % (AUTO) 1.2 % (20.0-44.0); MEAN CORPUSCULAR HGB CONC 34 g/dl (31.0-36.0); MEAN CORPUSCULAR VOLUME 90 fL (80-96); MONOCYTES # (AUTO) 0.9 /CMM (0.1-1.30); MONOCYTES % (AUTO) 3.1 % (2.0-12.0); NEUTROPHILS % (AUTO) 95.1 % (43.0-81.0); PLATELET COUNT (AUTO) 141 /CMM (150-450); RED BLOOD CELL COUNT(AUTO) 2.86 MIL/uL (4.5-6.0); WHITE BLOOD COUNT (AUTO) 27.3 K/uL (4.3-11.0)
[2020-03-04 05:08] LABS: CALCIUM, SERUM 8.9 mg/dL (8.5-10.1); CREATININE 1.5 mg/dL (0.6-1.3); MAGNESIUM 2.1 mg/dL (1.8-2.4); PHOSPHORUS 2.6 mg/dL (2.5-4.9)
[2020-03-04 05:24] LABS: POTASSIUM 2.5 mmol/L (3.5-5.1)
[2020-03-04] MEDS: HYDROCORTISONE SOD SUCCINATE 100 MG/2 ML VIAL IV SCH ×3 (05:26→21:19)
[2020-03-04] MEDS: CLINDAMYCIN 600 MG in IV D5W 50 ML IV SCH ×3 (05:27→21:19)
[2020-03-04] MEDS: PIPERACILLIN /TAZOBACTAM 3.375 G in IV D5W 100 ML IV SCH ×2 (05:27→13:10)
[2020-03-04 06:09] LABS: *SPE A/G RATIO 0.5 (0.7-1.7); *SPE ALBUMIN 3.1 g/dL (2.9-4.4); *SPE ALPHA-1-GLOBULIN 0.2 g/dL (0.0-0.4); *SPE ALPHA-2-GLOBULIN 0.5 g/dL (0.4-1.0); *SPE BETA GLOBULIN 0.7 g/dL (0.7-1.3); *SPE GLOBULIN, TOTAL 6.4 g/dL (2.2-3.9); *SPE M-SPIKE 4.7 g/dL (Not Observed); *SPEGAMMA GLOBULIN 4.9 g/dL (0.4-1.8)
[2020-03-04] MEDS ORDERED: [UNRECOGNIZED DRUG - MIXTURE] IV ONE (06:30)
--- NOTE | 2020-03-04 07:10 | NUR ---
RN NOTES PATIENT ASLEEP WELL ON BED. BREATHING EVEN AND UNLABORED. ON O2 3LPM VIA NC SATURATION 100%. AFEBRILE. VSS PATIENT TOLERATED FLUIDS DURING NURSING ASSESSMENT. DENIES PAIN PATIENT REFUSED TO HAVE BLOOD DRAWN FOR VANCO TROUGH. EXPLAINED THE BENEFITS OF LAB. INEFFECTIVE. ALL NEEDS ATTENDED. CRITICAL LAB VALUES REPORTED TO NOTED AND ACKNOWLEDGE ORDER. KEPT PT CLEAN AND DRY. ENDORSED CONTINUITY OF CARE TO AM NURSE.
[2020-03-04] MEDS: POTASSIUM CL. PREMIX PERIPHER. 50 ML IV SCH ×5 (07:30→21:38)
--- NOTE | 2020-03-04 07:30 | NUR ---
RN OPENING NOTE: RECEIVED PATIENT IN BED THIS MORNING. PATIENT IS AAOX3, RESPONDS APPROPRIATELY. NO SIGNS OF ACUTE DISTRESS NOTED. SATING WELL ON 3L/MIN NC. SINUS CELY IN 50S ON BEDSIDE MONITOR. 320 LAC/CARLOS, C/D/I, FLUSHING WELL, NO SIGNS OF COMPLICATIONS NOTED. OLIVERA DRAINING URINE. WOUND CARE PER ORDERS. SAFETY MEASURES IMPLEMENTED, BED IN LOWEST POSITION, LOCKED, SIDE RAILS UP, CALL LIGHT WITHIN REACH. WILL CONTINUE TO MONITOR PATIENT FOR CHANGES.
[2020-03-04] MEDS: ASPIRIN 81 MG TAB.CHEW PO SCH (08:10)
[2020-03-04] MEDS: PANTOPRAZOLE 40 MG VIAL IV SCH ×2 (08:12→21:19)
[2020-03-04] MEDS: Z GUARD REMEDY 2 OZ OINT TP SCH (08:13)
[2020-03-04] MEDS ORDERED: PRIMAQUINE 15 MG TABLET PO SCH (09:00)
[2020-03-04] MEDS: Potassium Chloride 20 MEQ in IV NS 0.9% 1,000 ML IV PRN (09:14)
[2020-03-04] MEDS: PRIMAQUINE 15 MG TABLET PO SCH (11:22)
[2020-03-04] MEDS ORDERED: DEXTROSE 50%-WATER 50 ML DISP.SYRIN IV PRN (12:30)
[2020-03-04] MEDS ORDERED: INSULIN REGULAR, HUMAN 100 UNIT/ML 3 ML VIAL SQ PRN (12:30)
--- NOTE | 2020-03-04 12:44 | NUR ---
CONTACTED DR CHAVEZ TO REQUEST SLIDING SCALE D/T PATIENT BEING ON A DIET POST ST EVAL. ORDERS TO PUT PATIENT ON MODERATE SLIDING SCALE.
--- NOTE | 2020-03-04 14:26 | NUR ---
PATIENT IN PAIN, CONTACTED DR CHAVEZ WITH ORDERS FOR MORPHINE CARRIED OUT
[2020-03-04] MEDS: MORPHINE SULFATE INJ 4 MG/ML DISP.SYRIN IV PRN ×3 (14:33→22:19)
--- NOTE | 2020-03-04 15:57 | NUR ---
PATIENT LEFT ICU AT 1557. NO ACUTE DISTRESS NOTED AT THIS TIME. VSS. GAVE REPORT TO ALONZO NORWOOD. BELONGINGS, CHART AND MEDICATIONS TRANSFERRED WITH PATIENT. SAFETY MEASURES IMPLEMENTED, BED IN LOWEST POSITION, LOCKED, SIDE RAILS UP, CALL LIGHT WITHIN REACH.
--- NOTE | 2020-03-04 16:00 | NUR ---
HORSEBACK EXCAVATOR NOTE: Patient transferred from ICU to room 109. In stable condition with cont. o2 via NC @ 3lpm, no SOB and not in respiratory distress. Saturation @ 93%. Pain reported and will be managed with prescribed pain medication.IV site clean, dry, patent and intact. Infusions being tolerated well. Li catheter in place and draining max colored urine. Bilateral soft wrist restraints on. Call light in reach Bed locked, low and at semi-soto's position. Side rails up x3. Will continue to monitor.
[2020-03-04] MEDS: BLOOD SUGAR DIAGNOSTIC 1 EACH STRIP VI SCH ×2 (17:08→21:54)
[2020-03-04] MEDS: CEFTRIAXONE 1 G in IV D5W 50 ML IV SCH (18:13)
[2020-03-04] MEDS: AZITHROMYCIN 500 MG in IV D5W 250 ML IV SCH (19:27)
--- NOTE | 2020-03-04 19:53 | NUR ---
Patient lying in bed w hob elevated. In stable condition with cont. o2 via NC @ 3lpm, no SOB and not in respiratory distress. Saturation @ 93%. Pain reported and will be managed with prescribed pain medication.IV site clean, dry, patent and intact. IV KCL running as prescribed. IV Antibiotics running as prescribed. Infusions being tolerated well. Li catheter in place and draining max colored urine. Bilateral soft wrist restraints on. Call light in reach Bed locked, low and at semi-soto's position. Side rails up x3. Willl endorse to oncoming RN.
[2020-03-04] MEDS: *INSULIN REGULAR(HUMULIN R)HUM 100 UNIT/ML VIAL SQ PRN (21:55)
--- NOTE | 2020-03-04 22:30 | NUR ---
2229 PATIENT KEEPS COMPLAINING OF PAIN ON HIS IV SITE WHERE KCL IV IS RUNNING. IV SITE PATENT WITH NO SIGNS OF INFILTRATION NOTED. PATIENT INSISTS ON STOPPING MEDICATION DESPITE EXPLANATION THE NEED FOR IT. POST DOC FELLOWSHIP KEH IN THE UNIT AND MADE AWARE OF PATIENT'S COMPLAIN WITH ORDER TO CANCEL REMAINING 20MEQ IV AND GIVE KCL 40 MEQ PO INSTEAD . ORDER NOTED AND CARRIED OUT. PATIENT MADE AWARE OF NEW ORDER.
[2020-03-04] MEDS ORDERED: POTASSIUM CHLORIDE 20 MEQ TAB.PRT.SR PO ONE (23:00)
[2020-03-05] VITALS (7 sets, daily range): BP systolic 132–174; BP diastolic 63–98
[2020-03-05] MEDS ORDERED: IV PREMIX NS +20MEQ KCL 1 L IV ONE (01:51)
[2020-03-05] MEDS: Potassium Chloride 20 MEQ in IV NS 0.9% 1,000 ML IV PRN ×3 (01:57→17:14)
[2020-03-05] MEDS: MORPHINE SULFATE INJ 4 MG/ML DISP.SYRIN IV PRN ×5 (02:08→20:13)
[2020-03-05] MEDS: HYDROCORTISONE SOD SUCCINATE 100 MG/2 ML VIAL IV SCH ×3 (04:07→20:38)
[2020-03-05] MEDS: CLINDAMYCIN 600 MG in IV D5W 50 ML IV SCH ×3 (04:07→20:38)
--- NOTE | 2020-03-05 06:51 | NUR ---
RN CLOSING NOTES PT ON BED A/OX3 ABLE TO VERBALIZED NEEDS, ON O2 2L WITH SPO2 98% TELE MONITOR READS SINUS RHYTHM 80,S NO SIGNIFICANT CHANGES ON CONDITION NOTED ALL NEEDS ATTENDED SAFETY MEASURE MAINTAINED BED ON LOWEST POSITION AND LOCKED SIDE RAILS UP CALL LIGHT WITHIN REACH WILL ENDORSED TO AM SHIFT NURSE
--- NOTE | 2020-03-05 07:25 | NUR ---
PT AWAKE AND ALERT IN BED WITH HOB ELEVATED. 2L/MIN NC RUNNING ORDERED AND TOLERATING WELL W SPO2 98%. SR ON TELE MONITOR. OLIVERA INTACT AND DRAINING YELLOW CLEAR URINE. SCABS NOTED THROUGHOUT BODY. CARLOS AND LAC FLUSHED, PATENT. DRESSING INTACT. NS W 20 MEQ KCL RUNNING AT 75ML ORDERED. WILL CONTINUE MONTRE[place] OF CARE TODAY. BED LOW, LOCKED, HOB ELEVATED, RAILS UP X2, CALL LIGHT IN REACH, ALL HOSPITAL POLICY SAFETY PRECAUTIONS IMPLEMENTED.
[2020-03-05 07:55] LABS: BASOPHILS # (AUTO) 0.1 /CMM (0.0-0.2); BASOPHILS % (AUTO) 0.3 % (0.0-2.0); HEMATOCRIT 31 % (39-51); HEMOGLOBIN 10.3 g/dL (13.5-17.5); LYMPHOCYTES # (AUTO) 0.5 /CMM (0.8-4.8); LYMPHOCYTES % (AUTO) 2.4 % (20.0-44.0); MEAN CORPUSCULAR HGB CONC 33 g/dl (31.0-36.0); MEAN CORPUSCULAR VOLUME 91 fL (80-96); MONOCYTES # (AUTO) 0.8 /CMM (0.1-1.30); MONOCYTES % (AUTO) 4.3 % (2.0-12.0); NEUTROPHILS # (AUTO) 18.4 /CMM (1.8-8.9); PLATELET COUNT (AUTO) 166 /CMM (150-450); RED BLOOD CELL COUNT(AUTO) 3.42 MIL/uL (4.5-6.0); WHITE BLOOD COUNT (AUTO) 19.7 K/uL (4.3-11.0)
[2020-03-05 08:06] LABS: CALCIUM, SERUM 9.4 mg/dL (8.5-10.1); CREATININE 1.5 mg/dL (0.6-1.3); MAGNESIUM 2.3 mg/dL (1.8-2.4); PHOSPHORUS 2.7 mg/dL (2.5-4.9); POTASSIUM 2.9 mmol/L (3.5-5.1)
[2020-03-05] MEDS: PANTOPRAZOLE 40 MG VIAL IV SCH (08:51)
[2020-03-05] MEDS: ASPIRIN 81 MG TAB.CHEW PO SCH (08:52)
[2020-03-05] MEDS: BLOOD SUGAR DIAGNOSTIC 1 EACH STRIP VI SCH ×4 (08:53→22:15)
[2020-03-05] MEDS: Z GUARD REMEDY 2 OZ OINT TP SCH (08:57)
[2020-03-05] MEDS ORDERED: POTASSIUM CHLORIDE 20 MEQ TAB.PRT.SR PO SCH ×2 (09:00→11:00)
--- NOTE | 2020-03-05 09:42 | NUR ---
PLANT CONTROL AIDE NOTE ST AT BEDSIDE PASS SWALLOW SHELLY JACKSON TO PUREE DIET , PER DR NILA JACKSON TO D\C 02 IF ABOVE SATURATION 92% OK NO O2 Addendum: 03/05/20 at 1201 by SEEMA QUIROGA RN [id number] 98% AT THIS TIME, ON RA WILL LEAVE ON RA ,NO SOB FOR NOW
[2020-03-05] MEDS: PRIMAQUINE 15 MG TABLET PO SCH (10:16)
[2020-03-05] MEDS ORDERED: INFLUENZA VACCINE 2020-21 0.5 ML DISP.SYRIN IM ONE (10:30)
[2020-03-05] MEDS: POTASSIUM CHLORIDE 20 MEQ TAB.PRT.SR PO SCH ×2 (11:56→12:32)
--- NOTE | 2020-03-05 12:00 | NUR ---
COACH NOTE PREFER TO STAY ON HIC BACK EXPLAINED IMPORTANCE TO REPOSITION STILL REFUSING .WILL CONT TO ENCOURAGING Addendum: 03/05/20 at 1831 by SEEMA QUIROGA RN 1400 AGAIN WANTS TO STAY ON HIS BACK DESPITE EXPLANATION OF IMPORTANCE TO REPOSITION, WILL CONT TO MONITOR
--- NOTE | 2020-03-05 14:37 | NUR ---
FIBER DESIGNER NOTE PT AT BEDSIDE, ALL NEEDS ATTENDED
[2020-03-05] MEDS ORDERED: POTASSIUM CHLORIDE 10 MEQ TAB.PRT.SR PO SCH (15:00)
--- NOTE | 2020-03-05 16:54 | NUR ---
PT REFUSING TO TURN AND REPOSITION. ENCOURAGING PT TO TURN Q2H BUT DENIES ALL ATTEMTPS ASSISTING TO TURN AND REPOSITION.
--- NOTE | 2020-03-05 17:08 | NUR ---
PT BP 171/91. CHECKED TWICE. INFORMED DR CHAVEZ. NEW ORDER FOR HYDRALAZINE 25 MG PO Q4H PRN SBP > 165. IMPLEMENTING ORDERED.
[2020-03-05] MEDS: CEFTRIAXONE 1 G in IV D5W 50 ML IV SCH (17:14)
[2020-03-05] MEDS: hydrALAZINE HCL 25 MG TABLET PO PRN (17:32)
[2020-03-05] MEDS: AZITHROMYCIN 500 MG in IV D5W 250 ML IV SCH (18:00)
--- NOTE | 2020-03-05 18:39 | NUR ---
PT LYING IN BED WITH HOB ELEVATED. PT REFUSING TO TURN. ATTEMPTS WERE MADE EVERY Q2H BUT PT DENIED ALL ATTEMPTS TO ASSIST WITH POSITION CHANGED. ON RA SPO2 ABOVE 94%. TOLERATING WELL. RESPIRATIONS EVEN AND UNLABORED. A/O X2. SLURRED SPEECH BUT FOLLOWS COMMANDS AND ASKS QUESTIONS APPROPRIATELY. CARDIAC PUREED DIET ORDERED TOLERATING WELL. CARLOS AND LAC PIV FLUSHING WELL. DRESSINGS DRY AND INTACT. ADMINISTERED ALL MEDS ORDERED. HOB ELEVATED, BED LOW, LOCKED, CALL LIGHT IN REACH, RAILS UP X2, ALL HOSPITAL POLICY SAFETY PRECAUTIONS IMPLEMENTED. WILL ENDORSE TO PM RN FOR CONTINUATION OF CARE.
--- NOTE | 2020-03-05 19:30 | NUR ---
RN OPENING NOTE RECEIVED PT IN BED, A/OX3-4. PATIENT IN NO S/SX OF ACUTE DISTRESS AT THIS TIME. NO SOB NOTED. PATIENT'S BREATHING IS EVEN AND UNLABORED, SATURATING AT 95% ON ROOM AIR. PATIENT ON TELE MONITOR READING SR, HR IS 74. NOTED IV SITE AT CARLOS G20, LAC G20, AND LH G24, ALL PATENT AND FLUSHING WELL, WITH PREMIX NS + KCL 20 MEQ INFUSING AT 75 ML/HR, NO S/S OF INFECTION OR INFILTRATION. NOTED REDNESS AT SACRUM, AND DISCOLORATION OF BLE. OLIVERA CATH CONNECTED TO URINE BAG IN PLACE DRAINING TO A CLEAR, YELLOW URINE. SAFETY MEASURES IMPLEMENTED PER PROTOCOL. PATIENT BED ALARM IS ON. HEAD OF BED ELEVATED. BED IS LOCKED, IN LOWEST POSITION AND SIDE RAILS UP. CALL LIGHT WITHIN REACH OF THE PATIENT. WILL CONTINUE TO MONITOR AND REASSESS FOR ANY CHANGES. Addendum: 03/06/20 at 0814 by LIDA VALDEZ RN ASKED PATIENT REGARDING PREVIOUS DESIRETO STAB HIMSELF WITH A KNIFE, HE SAID HE DOESNT WANT TO HURT HIMSELF ANY LONGER.
[2020-03-05] MEDS: PANTOPRAZOLE 40 MG TABLET.DR PO SCH (20:38)
[2020-03-05] MEDS: *INSULIN REGULAR(HUMULIN R)HUM 100 UNIT/ML VIAL SQ PRN (22:30)
[2020-03-06] VITALS: BP 153/92
[2020-03-06] MEDS: MORPHINE SULFATE INJ 4 MG/ML DISP.SYRIN IV PRN ×4 (03:10→22:52)
[2020-03-06 04:00] VITALS: BP 168/102
[2020-03-06] MEDS: hydrALAZINE HCL 25 MG TABLET PO PRN (05:35)
[2020-03-06] MEDS: CLINDAMYCIN 600 MG in IV D5W 50 ML IV SCH ×3 (05:40→20:27)
[2020-03-06] MEDS: HYDROCORTISONE SOD SUCCINATE 100 MG/2 ML VIAL IV SCH ×3 (05:40→20:26)
--- NOTE | 2020-03-06 06:00 | NUR ---
RN NOTE NOTED BP 176/102 AT 0400, PAIN MEDICATION ADMINISTERED AT 0342, BP RECHECKED AT 0430 AND REVEALED 168/102. PRN HYDRALAZINE ADMINISTERED. WILL CONT TO MONITOR.
[2020-03-06 06:26] LABS: BASOPHILS % (AUTO) 0.3 % (0.0-2.0); EOSINOPHILS % (AUTO) 0.1 % (0.0-6.0); HEMATOCRIT 28 % (39-51); HEMOGLOBIN 9.2 g/dL (13.5-17.5); LYMPHOCYTES # (AUTO) 0.4 /CMM (0.8-4.8); LYMPHOCYTES % (AUTO) 5.1 % (20.0-44.0); MEAN CORPUSCULAR HGB CONC 33 g/dl (31.0-36.0); MEAN CORPUSCULAR VOLUME 91 fL (80-96); MONOCYTES # (AUTO) 0.9 /CMM (0.1-1.30); MONOCYTES % (AUTO) 12.5 % (2.0-12.0); NEUTROPHILS # (AUTO) 6.1 /CMM (1.8-8.9); PLATELET COUNT (AUTO) 168 /CMM (150-450); RED BLOOD CELL COUNT(AUTO) 3.03 MIL/uL (4.5-6.0); WHITE BLOOD COUNT (AUTO) 7.5 K/uL (4.3-11.0)
[2020-03-06] MEDS: Potassium Chloride 20 MEQ in IV NS 0.9% 1,000 ML IV PRN ×2 (06:55→20:26)
[2020-03-06] MEDS: BLOOD SUGAR DIAGNOSTIC 1 EACH STRIP VI SCH ×4 (06:55→22:13)
--- NOTE | 2020-03-06 07:00 | NUR ---
CLAY ARTISAN KALA A/O X4 PATIENT COOPERATIVE WITH CARE. PATIENT IS AWAKE AND WATCHING TV AT THE BED. PATIENT IS ON EXTERNAL MONITOR 70'S PATIENT HAS BLE, BUE WEAKNESS. SACRAL REDNESS AND BLE DISCORLORATION PATIENT IS A FALL RISK AND PRECAUTIONS IN PLACED PATIENT HAS CARLOS 20 WITH NS + 20 MEQ @ 75 ML/ HR. LAC 20 LH 24, ALL LINES PATENT AND INTACT. NO SIGNS OF INFILTRATION OR SIGNS OF INFECTIONS. BED LOCKED LOWEST POSITION CALL LIGHT WITH IN REACH ALL SAFETY MEASURE IMPLEMENTED PER HOSPITAL POLICY
[2020-03-06 07:02] LABS: BILIRUBIN,TOTAL 0.5 mg/dL (0.2-1.0); CREATININE 1.4 mg/dL (0.6-1.3); PHOSPHORUS 3.2 mg/dL (2.5-4.9); POTASSIUM 3.8 mmol/L (3.5-5.1); TOTAL PROTEIN, SERUM 10.5 g/dL (6.4-8.2)
--- NOTE | 2020-03-06 07:30 | NUR ---
RN CLOSING NOTE PATIENT REMAINS IN ROOM, SITTING IN CHAIR. NO SIGNS OF RESPIRATORY DISTRESS. LATEST BP 150/90. SAFETY MEASURES IMPLEMENTED PER PROTOCOL, CALL LIGHT WITHIN REACH. ALL NEEDS AND ORDERS ADDRESSED DURING THE SHIFT. ALL DUE MEDS GIVEN ORDERED & SCHEDULED. PATIENT KEPT CLEAN AND COMFORTABLE WITHIN THE SHIFT. ENDORSED TO INCOMING SHIFT RN FOR CONTINUITY OF CARE. Addendum: 03/06/20 at 0815 by LIDA VALDEZ RN ASKED PATIENT FOR THE SECOND TIME REGARDING SUICIDAL THOUGHTS, HE SAID HE DOESNT WANT TO HURT HIMSELF ANYMORE. ENDORSED TO AM SHIFT RN. TERRAZZO MECHANIC HELPER MADE AWARE.
[2020-03-06 08:00] VITALS: BP_SYST 156; BP_SYST 157; BP_DIAS 94; BP_DIAS 98
[2020-03-06] MEDS: ASPIRIN 81 MG TAB.CHEW PO SCH (09:13)
[2020-03-06] MEDS: PANTOPRAZOLE 40 MG TABLET.DR PO SCH ×2 (09:14→20:26)
[2020-03-06] MEDS: PRIMAQUINE 15 MG TABLET PO SCH (09:14)
[2020-03-06] MEDS: Z GUARD REMEDY 2 OZ OINT TP SCH (09:14)
[2020-03-06] MEDS: hydrALAZINE HCL 50 MG TABLET PO SCH ×3 (10:03→16:35)
[2020-03-06 10:08] LABS: BAND % (MANUAL) 1 % (0.0-5.0); LYMPHOCYTES % (MANUAL) 4 % (16-48); MONOCYTES % (MANUAL) 5 % (0-11.0); NEUTROPHILS % (MANUAL) 90 (42-76)
[2020-03-06 12:00] VITALS: BP_SYST 146; BP_SYST 153; BP_DIAS 81; BP_DIAS 92
[2020-03-06 16:00] VITALS: BP 153/92
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
[2020-03-06] MEDS: CEFTRIAXONE 1 G in IV D5W 50 ML IV SCH (17:58)
--- NOTE | 2020-03-06 19:35 | NUR ---
OPENING NOTES PT IS CURRENTLY AWAKE IN BED. A/O X 4. ON TELE MONITORING IN PLACE SINUS RHYTHM PRESENTED WITH HR OF 78. CARDIAC DIET NOTED. PT IS ON ROOM AIR TOLERATING WELL. NO RESPIRATORY DISTRESS NOTED BREATHING IS EVEN AND UNLABORED AT THIS TIME. PT HAS BLE WEAKNESS. INFUSING NS + 20 MEQ KCL @ 75ML/HR. NO SIGNS OR SYMPTOMS OF INFILTRATION NOTED AT THIS TIME. PT DENIES PAIN AT THIS TIME. BED IS LOCKED IN LOWEST POSITION WITH ALARM ON. CALL LIGHT WITHIN REACH. WILL CONTINUE TO MONITOR.
--- NOTE | 2020-03-06 19:47 | NUR ---
PASSENGER CAR CONDUCTOR NO CHANGE IN PATIENT CONDITION AT THIS TIME. PATIENT VITALS STABLE. ON RA. NO SIGNS OF ACUTE RESPIRATORY DISTRESS , NO PAIN. PATIENT COOPERATIVE WITH . ON EXTERNAL MONITOR 80'S BED LOCKED LOWEST POSITION CALL LIGHT WITH IN REACH ALL SAFETY MEASURES IMPLEMENTED PER HOSPITAL POLICY.
[2020-03-06 20:00] VITALS: BP 153/86
[2020-03-06] MEDS ORDERED: AZITHROMYCIN 250 MG TABLET PO ONE (21:00)
--- NOTE | 2020-03-06 21:35 | NUR ---
LEFT HAND IV D/C. REINFORCED WITH TAPE AND GAUZE, HELD 1 MIN NO S/S OF BLEEDING. WILL CONTINUE TO MONITOR.
--- NOTE | 2020-03-06 22:05 | NUR ---
PT REQUESTS AMBIEN, NOTIFIED DR RAZO FOR AMBIEN 5MG PO PRN HS.
[2020-03-06] MEDS ORDERED: ZOLPIDEM TARTRATE 5 MG TABLET PO PRN (22:30)
--- NOTE | 2020-03-06 22:45 | NUR ---
PT CHANGED MIND AND REQUESTS MORPHINE PRN ORDERED FOR PAIN. GENERALIZED PAIN 01/05. REASSESSED 2345 AND PT VERBALIZES IT WORKS AND WANTS TO SLEEP.
[2020-03-07] VITALS: BP 146/88
[2020-03-07 04:00] VITALS: BP 153/84
[2020-03-07] MEDS: HYDROCORTISONE SOD SUCCINATE 100 MG/2 ML VIAL IV SCH ×2 (04:28→13:07)
[2020-03-07] MEDS: CLINDAMYCIN 600 MG in IV D5W 50 ML IV SCH ×2 (04:28→12:52)
--- NOTE | 2020-03-07 07:08 | NUR ---
RN CLOSING NOTES PT IS SITTING IN CHAIR. DOING ADLS INDEPENDENTLY. ON RA STILL TOLERATING WELL. NO SIGNS OF SOB OR RESP DISTRESS. PT REQUESTS CRANBERRY JUICE AT THIS TIME. ABLE TO AMBULATE WITHRESTROOM WITH ASSIST. 1 BM, NEED TO CONTINUE EDUCATION ON NOT PUSHING OR FORCING BOWEL MOVEMENT. ONLY PATENT LINE IV IS LEFT AC. NEEDS ATTENDED. CALL LIGHT WITHIN REACH. WILL ENDORSE TO AM NURSE FOR CONTINUATION OF CARE.
[2020-03-07] MEDS: BLOOD SUGAR DIAGNOSTIC 1 EACH STRIP VI SCH ×2 (07:50→11:49)
[2020-03-07] MEDS: Z GUARD REMEDY 2 OZ OINT TP SCH (07:57)
[2020-03-07 08:00] VITALS: BP 153/83
--- NOTE | 2020-03-07 08:05 | NUR ---
RN OPENING NOTE RECEIVED PT IS BED RESTING ALERT AND ORIENTED X4. PATIENT IS ON R/A SATURATING IN HIS 98%. NO S/SX OF ACUTE DISTRESS OR SOB NOTED AT THIS TIME. PATIENT'S BREATHING IS EVEN AND UNLABORED. PATIENT ON TELE MONITOR READING SR, HR IS 74. NOTED LAC #20 PATENT AND FLUSHING WELL, NO SIGN OF INFILTRATION OR INFECTION NOTED. OLIVERA CATH CONNECTED TO URINE BAG IN PLACE DRAINING . SAFETY MEASURES IMPLEMENTED PER HOSPITAL PROTOCOL PATIENT BED ALARM IS ON. HEAD OF BED ELEVATED. BED IS IN LOCKED AND IN LOWEST POSITION AND SIDE RAILS UP X2. CALL LIGHT WITHIN REACH . WILL CONTINUE TO MONITOR AND REASSESS FOR ANY CHANGES.
[2020-03-07] MEDS: ASPIRIN 81 MG TAB.CHEW PO SCH (08:12)
[2020-03-07] MEDS: PANTOPRAZOLE 40 MG TABLET.DR PO SCH (08:13)
[2020-03-07] MEDS: PRIMAQUINE 15 MG TABLET PO SCH (08:13)
[2020-03-07] MEDS: hydrALAZINE HCL 50 MG TABLET PO SCH ×2 (08:13→13:08)
[2020-03-07] MEDS ORDERED: hydrALAZINE HCL 50 MG TABLET PO SCH (10:30)
[2020-03-07] MEDS ORDERED: NITROGLYCERIN 30 GM TUBE TP SCH (10:30)
[2020-03-07 11:11] LABS: BASOPHILS % (AUTO) 0.2 % (0.0-2.0); EOSINOPHILS % (AUTO) 0.2 % (0.0-6.0); HEMATOCRIT 26 % (39-51); HEMOGLOBIN 8.5 g/dL (13.5-17.5); LYMPHOCYTES # (AUTO) 0.4 /CMM (0.8-4.8); LYMPHOCYTES % (AUTO) 5.9 % (20.0-44.0); MEAN CORPUSCULAR HGB CONC 33 g/dl (31.0-36.0); MEAN CORPUSCULAR VOLUME 91 fL (80-96); MONOCYTES # (AUTO) 1.5 /CMM (0.1-1.30); MONOCYTES % (AUTO) 23.3 % (2.0-12.0); NEUTROPHILS # (AUTO) 4.6 /CMM (1.8-8.9); NEUTROPHILS % (AUTO) 70.4 % (43.0-81.0); PLATELET COUNT (AUTO) 167 /CMM (150-450); RED BLOOD CELL COUNT(AUTO) 2.83 MIL/uL (4.5-6.0); WHITE BLOOD COUNT (AUTO) 6.6 K/uL (4.3-11.0)
[2020-03-07] MEDS: Potassium Chloride 20 MEQ in IV NS 0.9% 1,000 ML IV PRN (11:19)
[2020-03-07] MEDS: MORPHINE SULFATE INJ 4 MG/ML DISP.SYRIN IV PRN (11:20)
[2020-03-07 11:23] LABS: CALCIUM, SERUM 8.4 mg/dL (8.5-10.1); CREATININE 1.1 mg/dL (0.6-1.3); MAGNESIUM 1.9 mg/dL (1.8-2.4); PHOSPHORUS 3.2 mg/dL (2.5-4.9)
[2020-03-07 11:29] LABS: POTASSIUM 2.7 mmol/L (3.5-5.1)
[2020-03-07] MEDS ORDERED: POTA20PA3 PO (11:56)
[2020-03-07] MEDS ORDERED: HYDR-4076 PO (11:56)
[2020-03-07] MEDS ORDERED: CEFT1VIA15 IV (11:56)
[2020-03-07] MEDS ORDERED: CLIN600P10 IV (11:56)
[2020-03-07] MEDS ORDERED: [UNRECOGNIZED DRUG - CODE] PO (11:56)
[2020-03-07] MEDS ORDERED: ASPI-1169 PO (11:56)
[2020-03-07 12:00] VITALS: BP 143/83
--- NOTE | 2020-03-07 12:00 | NUR ---
RN NOTES PT HAS DC ORDER BY SCOTT HENRIQUEZ
[2020-03-07 13:08] VITALS: BP 143/83
[2020-03-07 14:12] LABS: BAND % (MANUAL) 1 % (0.0-5.0); LYMPHOCYTES % (MANUAL) 6 % (16-48); MONOCYTES % (MANUAL) 18 % (0-11.0); NEUTROPHILS % (MANUAL) 75 (42-76)
--- NOTE | 2020-03-07 15:30 | NUR ---
RN NOTES PT IS REFUSING TO GO [facility]. MANUEL SURVEY FIELD TECHNICIAN NOTIFIED AND DOCTOR NOTIFIED.
--- NOTE | 2020-03-07 15:55 | NUR ---
RN NOTES PT IS COVID TEST IS NEGATIVE JULIO CESAR CALLED
--- NOTE | 2020-03-07 16:07 | NUR ---
RN NOTES PT DC VS WNL. PT IS STABLE TO BE DC. PT SINGED AMA. EDUCATED PT AND GAVE HIM EDUCATIONAL PAPERWORK.
--- NOTE | 2020-03-07 16:10 | NUR ---
RN NOTES PT IS DC BY WHEELCHAIR AND TAXI VOUCER WAS GIVEN [place]ING [place] [id number] [facility] [place] [id number] [place] [phone]
--- NOTE | 2020-03-07 16:12 | NUR ---
RN NOTES PT VS WNL. PT DC PER HOSPITAL PROTOCOL, PIX WAS TAKEN AT THE CHART
== END 2020-03-07 16:03 | disposition left against medical advice (07) | DRG 974 ==
LOC: ER 21:05 → ICU 03-01 06:08 → TELE1 03-04 16:02 → TELE-TD 03-04 20:29 → TELE1 03-05 11:05
PROVIDERS: ADMIT Internal Medicine; ATTEND Nurse Practitioner Acute Care
PROC: 5A1945Z Respiratory Ventilation, 24-96 Consecutive Hours (ICD-10-PCS; principal; 2020-03-01)
PROC: 0BH17EZ Insertion of Endotracheal Airway into Trachea, Via Natural or Artificial Opening (ICD-10-PCS; 2020-03-01)
PROC: 02HV33Z Insertion of Infusion Device into Superior Vena Cava, Percutaneous Approach (ICD-10-PCS; 2020-03-01)
PROC: B548ZZA Ultrasonography of Superior Vena Cava, Guidance (ICD-10-PCS; 2020-03-01)
DX: A41.9 Sepsis, unspecified organism (principal); J96.01 Acute respiratory failure with hypoxia; B20 Human immunodeficiency virus [HIV] disease; J15.6 Pneumonia due to other Gram-negative bacteria; G93.41 Metabolic encephalopathy; N17.0 Acute kidney failure with tubular necrosis; I21.A1 Myocardial infarction type 2; J96.02 Acute respiratory failure with hypercapnia; J69.0 Pneumonitis due to inhalation of food and vomit; K72.00 Acute and subacute hepatic failure without coma; R65.21 Severe sepsis with septic shock; E87.1 Hypo-osmolality and hyponatremia; R45.851 Suicidal ideations; E87.4 Mixed disorder of acid-base balance; E46 Unspecified protein-calorie malnutrition; N39.0 Urinary tract infection, site not specified; K70.10 Alcoholic hepatitis without ascites; K70.30 Alcoholic cirrhosis of liver without ascites; F32.9 Major depressive disorder, single episode, unspecified; E87.5 Hyperkalemia; E88.09 Other disorders of plasma-protein metabolism, not elsewhere classified; E86.1 Hypovolemia; D63.8 Anemia in other chronic diseases classified elsewhere; I95.9 Hypotension, unspecified; R74.01 Elevation of levels of liver transaminase levels; F10.129 Alcohol abuse with intoxication, unspecified; Y90.8 Blood alcohol level of 240 mg/100 ml or more; B96.20 Unspecified Escherichia coli [E. coli] as the cause of diseases classified elsewhere
CPT/HCPCS: 31720; 36415; 36569; 36600; 70450-TC; 71045-TC; 76705-TC; 76770-TC; 80048-TC; 80053-TC; 80061-TC; 80076-TC; 80202-TC; 80305; 81000-TC; 82140-TC; 82533; 82570-TC; 82728-TC; 82803-TC; 82962-TC; 83540-TC; 83605-TC; 83735-TC; 83935-TC; 84100-TC; 84132-TC; 84155; 84155-TC; 84165; 84300-TC; 84439-TC; 84443-TC; 84484-TC; 85025-TC; 85652-TC; 86360; 86850-TC; 87040-TC; 87070-TC; 87081-TC; 87086-TC; 87186-TC; 92526; 92611-TC; 93307-TC; 94002-TC; 94003-TC; 94640-TC; 94760-TC; 94799-TC; 97110-TC; 97112-TC; 97116-TC; 97530-TC; 99082-TC; A4217; C1751; C9113; G0378; G0480; J0330; J0456; J0696; J1650; J1720; J1815; J2060; J2270; J2310; J2543; J3260; J3370; J3411; J3480; J3490; J7030; J7050; J7060; J7120; Q2036